=== PATIENT | male | born 1955 | race Caucasian/White ===

== ENCOUNTER 2025-01-06 18:56 | Emergency (ER) | payer OTHER, SELFPAY ==
[2025-01-06 18:56] VITALS: BP 147/90; PULSE 105; RESP 18; TEMP 36.6; O2SAT 99
[2025-01-06 19:00] VITALS: BMI 22.1
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
[2025-01-06 19:56] VITALS: BP 127/83; PULSE 84; RESP 18; O2SAT 96
[2025-01-06 20:00] VITALS: BP 127/83; PULSE 84; RESP 18; O2SAT 96
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
[2025-01-06] MEDS: 0.9% Normal Saline (1000mL) 1,000 ML 999 ML IV (20:09)
[2025-01-06 20:29] LABS: Hematocrit 32.7 % (40-54); Hemoglobin 11.5 g/dL (13.0-16.5); Immature Granulocytes Count 0.080 X10^3/uL (0.0-0.0); Mean Corp Hgb Conc 35.2 g/dL (32-36); Mean Corpuscular Volume 90.1 fL (80-94); Mean Platelet Vol. 11.0 fl (6.2-12.0); NRBC Flagged by Analyzer 0 % (0-5); Platelet Count 218 K/mm3 (150-450); RBC Distribution Width CV 11.9 % (11.6-14.6); RBC Distribution Width SD 39.0 fl (35.1-43.9); Red Blood Count 3.63 M/mm3 (4.6-6.2); White Blood Count 14.9 K/mm3 (4.4-11.0)
[2025-01-06 21:00] VITALS: BP 134/89; PULSE 88; RESP 17; O2SAT 98
[2025-01-06 21:38] LABS: Anion Gap 11 (5-15); BUN 15 mg/dL (4-19); BUN/Creat Ratio 20.9 RATIO (10-20); CPK Total, Creatine Kinase 721 U/L (24-195); Calcium,Total 8.6 mg/dL (7.6-11.0); Carbon Dioxide 21.5 mmol/L (21.0-32.0); Chloride 102 mmol/L (98-108); Estimated Creatinine Clearance 85.25 ml/min (50-250); Glucose 157 mg/dL (70-99); Potassium 3.1 mmol/L (3.3-5.1)
[2025-01-06 22:00] VITALS: BP 132/91; PULSE 74; RESP 16; O2SAT 98
[2025-01-06 23:04] VITALS: BP 132/91; PULSE 74; RESP 16; TEMP 37; O2SAT 98
== END 2025-01-06 23:05 | disposition home or self-care (01) ==
PROVIDERS: Emergency Provider Emergency Medicine; PCP Physician Assistant; Visit Provider Emergency Medicine
DX: S70.11XA Contusion of right thigh, initial encounter (principal); S42.031A Displaced fracture of lateral end of right clavicle, initial encounter for closed fracture; S00.81XA Abrasion of other part of head, initial encounter; S80.812A Abrasion, left lower leg, initial encounter; V89.2XXA Person injured in unspecified motor-vehicle accident, traffic, initial encounter; M79.5 Residual foreign body in soft tissue; Z18.10 Retained metal fragments, unspecified
CPT/HCPCS: 73000; 73552; 73706; 80048; 82550; 85025; 96360; 96361; 99284; Q9967; A4216